=== PATIENT | male | born 1950 | race Two or more races ===

== ENCOUNTER 2020-04-28 11:14 | Emergency (ER) | payer BC ==
[~2020-04-28] VITALS: Ht 185.4 cm; Wt 107.7 kg
[2020-04-28] MEDS ORDERED: oxymetazoline 15 ML nasal spray NS ONE (12:05)
[2020-04-28 13:49] VITALS: BP 129/76
== END 2020-04-28 13:47 | disposition home or self-care (01) ==
LOC: ER 11:15
DX: R04.0 Epistaxis (principal); I63.9 Cerebral infarction, unspecified; Z98.890 Other specified postprocedural states
CPT/HCPCS: 99282

== ENCOUNTER 2022-09-02 08:20 | Emergency (ER) | payer MEDICARE, BC ==
[~2022-09-02] VITALS: Ht 188 cm; Wt 103.0 kg
[2022-09-02 09:05] VITALS: BP 153/106
[2022-09-02] MEDS ORDERED: bacitracin 15gm ointment TP ONE (10:25)
[2022-09-02] MEDS ORDERED: cephalexin 250mg capsule PO ONE (10:25)
[2022-09-02] MEDS ORDERED: CEPH-585 PO (10:28)
== END 2022-09-02 10:43 | disposition home or self-care (01) ==
LOC: ER 08:20
DX: L23.7 Allergic contact dermatitis due to plants, except food (principal); I11.9 Hypertensive heart disease without heart failure; Z79.899 Other long term (current) drug therapy
CPT/HCPCS: 99284